=== PATIENT | male | born 1985 | race Caucasian/White ===

== ENCOUNTER 2018-04-08 21:14 | Emergency (ER) | payer MEDICAID ==
[~2018-04-08] VITALS: Ht 182.9 cm; Wt 72.6 kg
[2018-04-08 21:35] VITALS: BP 132/68
--- NOTE | 2018-04-08 21:35 | NUR ---
ER Nurse Note: Pt walked in c/o bilateral foot pain. Pt stated he "walked too much". Pt is a&ox3, VSS, no signs of distress. Pt is talking to himself, jumping from statement to statement. All orders completed per ERMD order. Pt pulled out IV site; cleaned and bandaged. Pt ambulatory; [facility] saw pt; [facility]
[2018-04-08 22:22] LABS: BASOPHILS % (AUTO) 0.9 % (0.0-2.0); EOSINOPHILS % (AUTO) 0.2 % (0.0-3.0); HEMATOCRIT 42.5 % (42.0-52.0); HEMOGLOBIN 14.4 G/DL (14.2-18.0); LYMPHOCYTES % (AUTO) 13.3 % (20.0-45.0); MEAN CORPUSCULAR VOLUME 89 FL (80-99); MONOCYTES % (AUTO) 8.5 % (1.0-10.0); NEUTROPHILS % (AUTO) 77.1 % (45.0-75.0); PLATELET COUNT 235 K/UL (150-450); RED BLOOD COUNT 4.78 M/UL (4.70-6.10); RED CELL DISTRIBUTION WIDTH 12.1 % (11.6-14.8); WHITE BLOOD COUNT 15.4 K/UL (4.8-10.8)
[2018-04-08 22:34] LABS: ANION GAP 15 mmol/L (5-15); BLOOD UREA NITROGEN 35 mg/dL (7-18); CALCIUM 9.6 MG/DL (8.5-10.1); CARBON DIOXIDE 24 MMOL/L (21-32); CHLORIDE 98 MMOL/L (98-107); CREATININE 1.1 MG/DL (0.55-1.30); POTASSIUM 3.6 MMOL/L (3.5-5.1); SODIUM 137 MMOL/L (136-145)
[2018-04-08 22:45] LABS: ALANINE AMINOTRANSFERASE 134 U/L (12-78); ALBUMIN 4.7 G/DL (3.4-5.0); ALBUMIN/GLOBULIN RATIO 1.2 (1.0-2.7); ALKALINE PHOSPHATASE 61 U/L (46-116); ASPARTATE AMINO TRANSFERASE 169 U/L (15-37); BILIRUBIN,TOTAL 1.7 MG/DL (0.2-1.0)
[2018-04-08 22:51] LABS: BILIRUBIN,DIRECT 0.5 MG/DL (0.0-0.3)
--- NOTE | 2018-04-09 00:27 | Emergency Room Report ---
History of Present Illness General Chief Complaint: General Complaint Source: Patient Present Illness [facility] Patient presents with complaints of foot pain This was the initial complaint however after further discussion Patient reports underlying schizophrenia and bipolar disorder Patient reports that he has been off Zyprexa for over the past 3 days Denies any homicidal or suicidal thoughts Patient however appears to have some random thought process and disorganized thought process Denies any focal weakness denies any fall or trauma Requesting his psychiatric medications and ability to rest Allergies: Coded Allergies: No Known Allergies (Unverified , 04/08/18) Patient History Past Medical History: see triage record Pertinent Family History: none Reviewed Nursing Documentation: PMH: Agreed; PSxH: Agreed Nursing Documentation-PMH History Of Psychiatric Problem: Yes - schizo Review of Systems All Other Systems: negative except mentioned in HPI Physical Exam Vital Signs Date Time Temp Pulse Resp B/P (MAP) Pulse Ox O2 Delivery O2 Flow Rate FiO2 04/08/18 21:10 98.1 78 16 132/68 100 Room Air Sp02 EP Interpretation: reviewed, normal General Appearance: well appearing, no apparent distress Head: normocephalic, atraumatic Eyes: bilateral eye PERRL, bilateral eye EOMI ENT: hearing grossly normal, normal pharynx, TMs + canals normal, uvula midline Neck: full range of motion, supple, no meningismus, no bony tend Respiratory: lungs clear, normal breath sounds, no rhonchi, no respiratory distress, no retraction, no accessory muscle use Cardiovascular #1: normal peripheral pulses, regular rate, rhythm, no edema, no gallop, no JVD, no murmur Gastrointestinal: normal bowel sounds, non tender, soft, no mass, no organomegaly, non-distended, no guarding, no hernia, no pulsatile mass, no rebound Musculoskeletal: normal inspection Neurologic: oriented x3, responsive, telecommunications clerk III-XII nml as tested, motor strength/ tone normal, sensory intact Psychiatric: mood/affect normal - With some disorganized thought process Skin: normal color, no rash, warm/dry, palpation normal Lymphatic: normal inspection, no adenopathy Medical Decision Making Diagnostic Impression: Primary Impression: Encounter for generalized patient complaints Additional Impressions: Schizophrenia Foot pain, bilateral ER Course Upon initial arrival patient has baseline blood work initiated along with a urine sample and Drug screen initiated Patient testing positive for amphetamines and marijuana White blood cell count was mildly elevated Therefore this was repeated after IV hydration and has improved Patient does not meet any criteria for 5150, denies any suicidal or homicidal thoughts After taking his medication here has improved with flight of thought Patient was allowed to rest and sleep in the room, pending evaluation in the morning However patient has come out to the waiting area several times and reports that he does not want to be here anymore Denies any pain to his feet reports that he feels significantly better I did go and speak with the patient as well we were still pending repeat of his chemistry results And also reevaluation, and as he did not want to wait any further essentially leaving against my medical advice for further evaluation and repeat examination Patient has full decision-making capacity and leaving under his own recognizance Labs Test 04/08/18 21:50 04/09/18 03:15 White Blood Count 15.4 K/UL (4.8-10.8) 9.9 K/UL (4.8-10.8) Red Blood Count 4.78 M/UL (4.70-6.10) 3.97 M/UL (4.70-6.10) Hemoglobin 14.4 G/DL (14.2-18.0) 12.1 G/DL (14.2-18.0) Hematocrit 42.5 % (42.0-52.0) 35.0 % (42.0-52.0) Mean Corpuscular Volume 89 FL (80-99) 88 FL (80-99) Mean Corpuscular Hemoglobin 30.1 PG (27.0-31.0) 30.6 PG (27.0-31.0) Mean Corpuscular Hemoglobin Concent 33.9 G/DL (32.0-36.0) 34.7 G/DL (32.0-36.0) Red Cell Distribution Width 12.1 % (11.6-14.8) 12.4 % (11.6-14.8) Platelet Count 235 K/UL (150-450) 179 K/UL (150-450) Mean Platelet Volume 6.3 FL (6.5-10.1) 7.0 FL (6.5-10.1) Neutrophils (%) (Auto) 77.1 % (45.0-75.0) 60.8 % (45.0-75.0) Lymphocytes (%) (Auto) 13.3 % (20.0-45.0) 25.4 % (20.0-45.0) Monocytes (%) (Auto) 8.5 % (1.0-10.0) 11.6 % (1.0-10.0) Eosinophils (%) (Auto) 0.2 % (0.0-3.0) 1.0 % (0.0-3.0) Basophils (%) (Auto) 0.9 % (0.0-2.0) 1.2 % (0.0-2.0) Sodium Level 137 MMOL/L (136-145) 136 MMOL/L (136-145) Potassium Level 3.6 MMOL/L (3.5-5.1) 3.4 MMOL/L (3.5-5.1) Chloride Level 98 MMOL/L (98-107) 99 MMOL/L (98-107) Carbon Dioxide Level 24 MMOL/L (21-32) 23 MMOL/L (21-32) Anion Gap 15 mmol/L (5-15) 14 mmol/L (5-15) Blood Urea Nitrogen 35 mg/dL (7-18) 31 mg/dL (7-18) Creatinine 1.1 MG/DL (0.55-1.30) 1.0 MG/DL (0.55-1.30) Estimat Glomerular Filtration Rate > 60 mL/min (>60) > 60 mL/min (>60) Glucose Level 117 MG/DL (74-106) 104 MG/DL (74-106) Calcium Level 9.6 MG/DL (8.5-10.1) 8.9 MG/DL (8.5-10.1) Total Bilirubin 1.7 MG/DL (0.2-1.0) Direct Bilirubin 0.5 MG/DL (0.0-0.3) Aspartate Amino Transf (AST/SGOT) 169 U/L (15-37) Alanine Aminotransferase (ALT/SGPT) 134 U/L (12-78) Alkaline Phosphatase 61 U/L (46-116) Total Protein 8.5 G/DL (6.4-8.2) Albumin 4.7 G/DL (3.4-5.0) Globulin 3.8 g/dL Albumin/Globulin Ratio 1.2 (1.0-2.7) Salicylates Level < 0.2 ug/mL (2.8-20) Urine Opiates Screen Negative (NEGATIVE) Acetaminophen Level < 2 MCG/ML (10-30) Urine Barbiturates Screen Negative (NEGATIVE) Phencyclidine (PCP) Screen Negative (NEGATIVE) Urine Amphetamines Screen Positive (NEGATIVE) Urine Benzodiazepines Screen Negative (NEGATIVE) Urine Cocaine Screen Negative (NEGATIVE) Urine Marijuana (THC) Screen Positive (NEGATIVE) Serum Alcohol < 3 mg/dL Last Vital Signs Date Time Temp Pulse Resp B/P (MAP) Pulse Ox O2 Delivery O2 Flow Rate FiO2 04/08/18 21:35 78 16 Room Air 04/08/18 21:35 98.1 132/68 100 Status: improved Disposition: AGAINST MEDICAL ADVICE Condition: Improved Scripts No Active Prescriptions or Reported Meds Referrals: NOT CHOSEN IPA/MD,REFERRING (PCP) Additional Instructions: Patient was advised to please return to the emergency room if he changes his mind or would like continued care Livan Holder DO Apr 09, 2018 00:27
[2018-04-09 00:35] VITALS: BP 136/65
--- NOTE | 2018-04-09 00:35 | NUR ---
ER Nurse Note: Pt VSS, no signs of distress. Pt follow commands, calm, and in bed. Pt denies pain. All safety measures met; will continue to monitor.
[2018-04-09 03:15] VITALS: BP 134/82
[2018-04-09 03:28] LABS: BASOPHILS % (AUTO) 1.2 % (0.0-2.0); HEMOGLOBIN 12.1 G/DL (14.2-18.0); LYMPHOCYTES % (AUTO) 25.4 % (20.0-45.0); MEAN CORPUSCULAR VOLUME 88 FL (80-99); MONOCYTES % (AUTO) 11.6 % (1.0-10.0); NEUTROPHILS % (AUTO) 60.8 % (45.0-75.0); PLATELET COUNT 179 K/UL (150-450); RED BLOOD COUNT 3.97 M/UL (4.70-6.10); RED CELL DISTRIBUTION WIDTH 12.4 % (11.6-14.8); WHITE BLOOD COUNT 9.9 K/UL (4.8-10.8)
--- NOTE | 2018-04-09 03:28 | NUR ---
Note undone in EDM - 04/09/18 at 0342 by [email or web address] ER Nurse Note: Repeat labs sent; awaiting results. Pt is becoming agitated; repeatly stating he needs to leave and rest at his own home. Pt a&ox4, VSS. ERMD aware and notifed; pt and ERMD signed AMA paper. IV removed; site clean and bandaged. Pt ambulated with no difficulites; no complains of pain; left with all belongings.
[2018-04-09 03:35] LABS: ANION GAP 14 mmol/L (5-15); BLOOD UREA NITROGEN 31 mg/dL (7-18); CALCIUM 8.9 MG/DL (8.5-10.1); CARBON DIOXIDE 23 MMOL/L (21-32); CHLORIDE 99 MMOL/L (98-107); POTASSIUM 3.4 MMOL/L (3.5-5.1); SODIUM 136 MMOL/L (136-145)
[2018-04-09 03:37] VITALS: BP 134/82
--- NOTE | 2018-04-09 03:38 | NUR ---
ER Nurse Note: Repeat labs sent; awaiting results. Pt is becoming agitated; repeatly stating he needs to leave and rest at his own home. Pt a&ox4, VSS. Pt voluntary walked in to ER seeking help; all orders provided per ERMD orders. Food, hygienic supplies provded per pt request. ERMD aware and notifed; pt and ERMD signed AMA paper. IV removed; site clean and bandaged. Pt ambulated with no difficulites; no complains of pain; left with all belongings.
[2018-04-09 03:46] LABS: ALANINE AMINOTRANSFERASE 128 U/L (12-78); ALBUMIN 4.4 G/DL (3.4-5.0); ALBUMIN/GLOBULIN RATIO 1.3 (1.0-2.7); ALKALINE PHOSPHATASE 55 U/L (46-116); ASPARTATE AMINO TRANSFERASE 174 U/L (15-37); BILIRUBIN,TOTAL 1.9 MG/DL (0.2-1.0)
[2018-04-09 03:53] LABS: BILIRUBIN,DIRECT 0.5 MG/DL (0.0-0.3)
--- NOTE | 2018-04-09 04:29 | NUR ---
Note undone in EDM - 04/09/18 at 0435 by [email or web address] ER Nurse Note: Repeat labs sent; awaiting results. Pt is becoming agitated; repeatly stating he needs to leave and rest at his own home. Pt a&ox4, VSS. Pt voluntary walked in to ER seeking help; all orders provided per ERMD orders. Food, hygienic supplies provded per pt request. ERMD aware and notifed; pt and ERMD signed AMA paper. IV removed; site clean and bandaged. Pt ambulated with no difficulites; no complains of pain; left with all belongings.
== END 2018-04-09 03:38 | disposition left against medical advice (07) ==
LOC: EDBD 21:14 → EMR 22:00
DX: M25.572 Pain in left ankle and joints of left foot (principal); M25.571 Pain in right ankle and joints of right foot; F20.9 Schizophrenia, unspecified; F31.9 Bipolar disorder, unspecified
CPT/HCPCS: 36415; 80053; 80307; 80329; 82248; 85025; 96360; 99284